=== PATIENT | female | born 1950 | race Caucasian/White ===

== ENCOUNTER 2016-05-01 15:44 | Emergency (ER) | payer BC ==
[2016-05-01 15:57] VITALS: BP 135/76
--- NOTE | 2016-05-01 16:12 | UC ---
Respiratory Complaint HPI - HPI Summary HPI Summary: had asinus infection last week rx with Zithromax, flew in from [place], has had increase cough and pain with cough for the past 3 days and continued left frontal sinus pain - History of Current Complaint Chief Complaint: UCRespiratory Stated Complaint: RESP COMPLAINT Time Seen by Provider: 05/01/16 16:07 Hx Obtained From: Patient ?: No Onset/Duration: Gradual Onset, Lasting Days, Still Present Timing: Constant Severity Initially: Mild Severity Currently: Moderate Pain Scale Used: 0-10 Numeric - 4 Character: Cough: Nonproductive Aggravating Factors: Nothing Alleviating Factors: Nothing Associated Signs And Symptoms: Positive: Pleuritic Chest Pain, URI, Nasal Congestion, Sinus Discomfort. Negative: Calf Pain, Calf Swelling - Allergies/Home Medications Allergies/Adverse Reactions: Allergies Allergy/AdvReac Type Severity Reaction Status Date / Time Meperidine [From Demerol HCl] AdvReac Intermediate Vomiting Verified 01/14/16 08 :11 enviromental Allergy Eyes Uncoded 01/14/16 08:11 Itchy/Swollen/Red/Watery hazelnuts Allergy See Comment Uncoded 01/14/16 08:11 Home Medications: Home Medications Dayquil 2 tab PO Q6HR PRN 05/01/16 [History Confirmed 05/01/16] guaiFENesin ER TAB [Mucinex*] 1 tab PO Q4HR PRN 05/01/16 [History Confirmed 12/08] PMH/Surg Hx/FS Hx/Imm Hx Previously Healthy: No Endocrine History Of: Denies: Diabetes, Thyroid Disease Cardiovascular History Of: Denies: Cardiac Disorders, Hypertension Respiratory History Of: Reports: Asthma Denies: COPD GI/ History Of: Denies: Ulcer, Renal Disease - Surgical History Surgical History: None - Family History Known Family History: Positive: None Family History: no reported cardiovascular issues in family lineage - Social History Occupation: Retired Lives: With Family Alcohol Use: Occasionally Substance Use Type: None Smoking Status (MU): Never Smoked Tobacco - Immunization History Most Recent Influenza Vaccination: 2015/2016 season Review of Systems Constitutional: Chills, Fatigue Skin: Negative Eyes: Negative ENT: Negative, Nasal Discharge Respiratory: Cough Cardiovascular: Negative Gastrointestinal: Negative Genitourinary: Negative Motor: Negative Neurovascular: Negative Musculoskeletal: Negative Neurological: Negative Psychological: Negative All Other Systems Reviewed And Are Negative: Yes Physical Exam Triage Information Reviewed: Yes Appearance: Well-Appearing, No Pain Distress, Well-Nourished Vital Signs: Initial Vital Signs Temp 97.6 F 05/01/16 15:49 Pulse 60 05/01/16 15:49 Resp 18 05/01/16 15:49 BP 135/76 05/01/16 15:49 Pulse Ox 99 05/01/16 15:49 Vital Signs Reviewed: Yes Eye Exam: Normal Eyes: Positive: Conjunctiva Clear ENT Exam: Normal ENT: Positive: Normal ENT inspection, Hearing grossly normal, Pharynx normal, Nasal congestion, Nasal drainage, TMs normal. Negative: Tonsillar swelling, Tonsillar exudate, Trismus, Muffled/hoarse voice Dental Exam: Normal Neck exam: Normal Neck: Positive: Supple, Nontender, No Lymphadenopathy Respiratory Exam: Normal Respiratory: Positive: Chest non-tender, No respiratory distress, No accessory muscle use, Wheezing Cardiovascular Exam: Normal Cardiovascular: Positive: RRR, No Murmur, Pulses Normal, Brisk Capillary Refill Musculoskeletal Exam: Normal Musculoskeletal: Positive: Strength Intact, ROM Intact, No Edema Neurological Exam: Normal Neurological: Positive: Alert, Muscle Tone Normal Psychological Exam: Normal Skin Exam: Normal UC Diagnostic Evaluation - Laboratory O2 Sat by Pulse Oximetry: 99 Respiratory Course/Dx - Course Course Of Treatment: Augmentin, flonase, albuterol - Differential Dx/Diagnosis Differential Diagnosis/HQI/PQRI: Bronchitis, Laryngitis, Lower Resp Infection, Sinusitis Provider Diagnoses: Sinusitis, Bronchospasm Discharge - Discharge Plan Condition: Stable Disposition: HOME Prescriptions: Albuterol HFA INHALER* [Ventolin HFA Inhaler*] 2 puff INH Q4H PRN #1 mdi PRN Reason: cough/wheeze Amoxicillin/Clavulanate TAB* [Augmentin TAB 875*] 875 mg PO BID #20 tab Fluticasone NASAL SPRAY 50MCG* [Flonase NASAL SPRAY 50MCG*] 2 spray BOTH NARES DAILY #1 btl Patient Education Materials: How to Use a Metered-Dose Inhaler (ED), Acute Bronchitis (ED), How to Use Nasal [place] (ED) Referrals: Blaise Irving MD [Primary Care Provider] - If Needed
== END 2016-05-01 16:22 | disposition home or self-care (01) ==
LOC: UCEAST 15:44
DX: J32.9 Chronic sinusitis, unspecified (principal); J98.01 Acute bronchospasm; Z88.5 Allergy status to narcotic agent
CPT/HCPCS: 99212; G0463

== ENCOUNTER 2019-03-28 13:23 | Day surgery (SDC) | payer BC ==
[~2019-03-28 13:23] MED LIST: Buffered Lidocaine 1% SYRIN* 1 ML/SYRINGE INTRADERM ONE; Lactated Ringers 1000 ML Bag* 1,000 ML IV SCH
[2019-03-28] MEDS ORDERED: Scopolamine 1.5 mg* PATCH ONE (14:54)
[2019-03-28] MEDS ORDERED: Ondansetron INJ* 2 MG/ML VIAL ONE ×2 (14:54→20:16)
[2019-03-28] MEDS ORDERED: Dexamethasone IV* 4 MG/ML 1 ML (4 MG) ONE (14:54)
[2019-03-28] MEDS ORDERED: HYDROmorphone INJ1* 1 MG/ML SYRINGE IV PRN (16:35)
[2019-03-28] MEDS ORDERED: Ondansetron INJ* 2 MG/ML VIAL IV PRN (16:35)
[2019-03-28] MEDS ORDERED: Naloxone* 0.4 MG/ML 1 ML VIAL IV PRN (16:35)
[2019-03-28] MEDS ORDERED: PROCHLORPERAZINE INJ 5 MG/ML 2 ML VIAL IV PRN (16:35)
[2019-03-28] MEDS ORDERED: oxyCODONE TAB* 5 MG TAB PO PRN (16:35)
[2019-03-28] MEDS ORDERED: Acetaminophen TAB* 325 MG PO PRN (16:35)
[2019-03-28] MEDS ORDERED: Midazolam* 1 MG/ML 2 ML VIAL (2 MG) ONE (16:38)
[2019-03-28] MEDS ORDERED: Lidocaine 2% PF * 5 ML VIAL ONE (17:36)
[2019-03-28] MEDS ORDERED: Propofol* 10 MG/ML 20 ML BTL ONE (17:36)
[2019-03-28] MEDS ORDERED: fentaNYL* 50 MCG/ML 2 ML VIAL (100 MCG VIAL) ONE (17:36)
[2019-03-28] MEDS ORDERED: Lidocaine 1% INJ* 10 MG/ML 30 ML SDV ONE (17:55)
[2019-03-28] MEDS ORDERED: Bupivacaine 0.25% EPI 200,000* 30 ML SDV ONE (17:55)
[2019-03-28] MEDS ORDERED: Bupivacaine 0.25% SDV* 30 ML ONE (17:55)
[2019-03-28] MEDS ORDERED: Ketorolac INJ* 30 MG/ML 1 ML VIAL ONE (17:57)
[2019-03-28] MEDS ORDERED: Lidocaine 1% w EPI 1:200,000* SDV 30 ML VIAL ONE (17:58)
[2019-03-28] MEDS ORDERED: HYDROmorphone INJ1* 1 MG/ML SYRINGE ONE (18:31)
[2019-03-28] MEDS ORDERED: EPHEDrine (Pressors)* 50 MG/ML VIAL ONE (18:46)
[2019-03-28] MEDS ORDERED: Acetaminophen TAB* 325 MG ONE (19:37)
[2019-03-28 20:53] VITALS: BP 108/65
--- NOTE | 2019-03-29 21:56 | OP ---
CC: Dr. Holden Quach; Dr. Blaise Irving; Dr. Emani White * DATE OF OPERATION: 03/28/19 - [facility] DATE OF : 52 SURGEON: Kodi Quiros MD AIR BAG STRIPPER: Makeda Matson. ANESTHESIOLOGIST: Veronica Rasmussen MD ANESTHESIA: General via laryngeal mask airway. PRE-OP DIAGNOSIS: Schwannoma, right arm. POST-OP DIAGNOSIS: Schwannoma, median nerve, right arm. OPERATIVE PROCEDURE: Excision schwannoma, median nerve, right arm. INDICATIONS: The patient is a 68-year-old, right-hand dominant female with a greater than 6-month history of a tender lump in her proximal medial right arm. Fine needle aspiration was performed on 10/12/18 and the pathology read as benign spindle cell proliferation compatible with schwannoma. She reports no numbness or weakness. She reports a sharp electric-type shooting pain down the arm into the radial forearm entering into the hand with tapping of the lesion and with certain movements. MRI was performed on 12/09/18. The findings read as a 2.3-cm maximum dimension mass lesion corresponding with a palpable lump, while not entirely specific, it is most suspicious for a nerve sheath tumor based on morphology. Examination of the right arm demonstrated a 2.7-cm, firm, tender, mobile, subcutaneous or submuscular mass in the right proximal medial arm. A positive "Tinel's" is noted. She was noted to have good extension, flexion of the elbow and wrist as well as good thenar muscle strength, good intrinsic hand strength and light touch intact throughout the hand and forearm. ESTIMATED BLOOD LOSS: Minimal. SPECIMENS: Excision schwannoma, right arm. DRAINS: None. COMPLICATIONS: None. DESCRIPTION OF PROCEDURE: The patient was brought to the operating room and placed on operating room table in supine position. General anesthesia was induced by Dr. Rasmussen. The area was prepped with ChloraPrep solution and draped sterilely and the upper extremity placed on a hand surgery table. Longitudinal incision was made in the proximal medial right arm overlying the mass through the level of the dermis with a scalpel. Dissection was continued down through the subcutaneous tissues and muscle splitting incision was made through the biceps. Immediately deep to the biceps, the encapsulated tumor was identified with fusiform swelling of the median nerve noted, approximately 2.5 cm in length with normal-appearing nerve proximal and distal to this. The perineurium was incised and meticulous dissection performed under loupe magnification to identify fascicles of the nerve and carefully dissect these off of the mass. Hemostasis was maintained throughout the procedure with fine point bipolar electrocautery. Small vessel loops were used to gently retract the nerve fascicles as they were dissected free from the tumor. Eventually, the tumor was able to be completely shelled out of the nerve leaving all fascicles of the nerve grossly intact. The mass was sent for routine pathologic study in formalin. The wound was irrigated with saline solution. The muscle was closed with interrupted sutures of 2-0 Vicryl. Subcutaneous fascia and deep dermal layers were closed with buried interrupted sutures of 3- 0 Vicryl and the skin was closed with running subcuticular suture of 4-0 Monocryl. DermaFlex and Steri-Strips were applied as a dressing. Further gauze and tape dressing was applied. At the end of the procedure, the wound was infiltrated with approximately 10 cc of 0.125% Marcaine, 0.5% lidocaine with epinephrine 1:200,000 solution. The patient tolerated the procedure well. There were no complications. All counts were reported as correct at the end of procedure. The patient was taken to the recovery area with stable postoperative condition. [id number]/[facility] #: [id number] [facility]PITALRenetta
== END 2019-03-28 20:55 | disposition home or self-care (01) ==
LOC: OR 13:23
PROVIDERS: ATTEND Plastic Surgery
DX: D36.12 Benign neoplasm of peripheral nerves and autonomic nervous system, upper limb, including shoulder (principal); Z85.828 Personal history of other malignant neoplasm of skin; Z87.442 Personal history of urinary calculi
CPT/HCPCS: 88305; A9270-GY; J1100; J1170; J1885; J2001; J2250; J2405; J2704; J3010; J3490